=== PATIENT | female | born 1965 | race Hispanic/Latino ===

== ENCOUNTER 2019-07-12 10:54 | Outpatient (CLI) | payer BC ==
--- NOTE | 2019-07-12 14:24 | Mammography Report ---
DIGITAL SCREENING MAMMOGRAM WITH CAD, 07/12/2019 INDICATION: Routine screening mammography. TECHNIQUE: Digital bilateral 2D mammography was obtained in the craniocaudal and mediolateral obliq ue projections. This examination was interpreted with the benefit of Computer-Aided Detection analysi s. COMPARISON: None available. However, she indicated she had a prior mammogram at [facility]. FINDINGS: Breast Density: The breasts are heterogeneously dense, which may obscure small masses. Right asymmetry and left focal architectural distortion require comparison with a prior mammogram or additional imaging. No suspicious calcifications. IMPRESSION: Comparison with a previous mammogram is recommended. We will attempt to obtain a prior mammogram for comparison. If we do not obtain a prior mammogram within 30 days, a revised report will be issued rec ommending a recall for additional imaging. Please be advised that the patient should not schedule an appointment for return until adequate time (at least 2 weeks) has passed for us to obtain the prior m ammogram. Follow up recommendation: Obtain prior study for comparison Category 0: Incomplete. Needs additional imaging evaluation and/or prior mammograms for comparison. A "normal" or negative report should not discourage follow up or biopsy of a clinically significant f inding. A written summary of these findings will be mailed to the patient. The patient will be entered into a mammography reporting system which will generate a reminder letter for the patient's next appointmen t at the appropriate interval. The [employer] recommends yearly mammograms starting at age 40 and continuing as l tiffany as a woman is in good health. Breast MRI is recommended for women with an approximate 20-25% or greater lifetime risk of breast cancer, including women with a strong family history of breast or ova tabatha cancer or who have been treated for Hodgkin's disease. Signer Name: Yeyo Mak MD Signed: 07/12/2019 2:20 PM Workstation Name: [id number]
== END 2019-07-12 10:55 | disposition home or self-care (01) ==
LOC: MERGE 10:54 → MAMMO 10:54
PROVIDERS: ATTEND Internal Medicine
DX: Z12.31 Encounter for screening mammogram for malignant neoplasm of breast (principal)
CPT/HCPCS: 77067

== ENCOUNTER 2020-01-25 09:19 | Outpatient (CLI) | payer BC ==
[2020-01-25 10:08] LABS: BUN/Creatinine Ratio 18; Blood Urea Nitrogen 14 mg/dL (7-17); Calcium 10.1 mg/dL (8.4-10.2); Chol/HDL Ratio 3.27 %; HDL Cholesterol 51 mg/dL (40-59); Hemolysis Index 4; LDL Cholesterol,Direct 103 mg/dL (50-130)
== END 2020-01-25 09:20 | disposition home or self-care (01) ==
LOC: LAB 09:19
PROVIDERS: ATTEND Internal Medicine
DX: N20.0 Calculus of kidney (principal); E66.09 Other obesity due to excess calories; Z90.5 Acquired absence of kidney
CPT/HCPCS: 36415; 80048; 80061

== ENCOUNTER 2020-03-13 13:59 | Outpatient (CLI) | payer BC ==
--- NOTE | 2020-03-13 19:04 | Magnetic Resonance Report ---
MRI LUMBAR SPINE WITHOUT CONTRAST INDICATION / CLINICAL INFORMATION: BACK PAIN TECHNIQUE: Multisequence, multiplanar images of the lumbar spine were obtained. COMPARISON: None available. FINDINGS: Last disc space is considered to be L5-S1 ALIGNMENT: Normal lumbar lordosis without significant scoliosis. VERTEBRAE:Normal marrow signal and vertebral body height for age. VISUALIZED SPINAL CORD: No significant abnormality. Conus ends at L1 vertebral body level [id number] ANALYSIS: T12-L1 disc space is normal L1-2: Disc protrusion extending bilaterally more towards the right side; neuroforamina are normal L2-3: Shallow disc protrusion more towards the left side; neuroforamina are normal L3-4: Thecal sac stenoses due to combination of disc protrusion towards the right side; mild to moder ate facet and ligamentous hypertrophy; right neuroforamen narrowed L4-5: Significant thecal sac stenoses due to combination of broad-based disc herniation towards the l eft neuroforamen, facet and ligamentous hypertrophy; left foraminal stenoses L5-S1: Normal neuroforamina; mild to moderate facet joint hypertrophic changes PARASPINAL SOFT TISSUES: No significant abnormality. ADDITIONAL FINDINGS: None. IMPRESSION: Significant thecal sac stenoses at L4-L5 disc level due to broad-based disc herniation towards left neuroforamen, facet and ligamentous hypertrophy Moderate thecal sac stenoses at L3-L4 disc level due to disc protrusion towards the right side and fa cet and ligamentous hypertrophy Signer Name: Karla Rene MD Signed: 03/13/2020 6:59 PM Workstation Name: [id number]
== END 2020-03-13 14:00 | disposition home or self-care (01) ==
LOC: MRI 13:59
PROVIDERS: ATTEND Internal Medicine
DX: M48.061 Spinal stenosis, lumbar region without neurogenic claudication (principal); M40.47 Postural lordosis, lumbosacral region; M51.26 Other intervertebral disc displacement, lumbar region
CPT/HCPCS: 72148

== ENCOUNTER 2020-09-20 13:50 | Outpatient (CLI) | payer BC ==
--- NOTE | 2020-09-20 15:33 | Cat Scan Report ---
CT ABDOMEN AND PELVIS WITHOUT CONTRAST INDICATION / CLINICAL INFORMATION: CALCULUS OF KIDNEY. TECHNIQUE: Axial CT images were obtained through the abdomen and pelvis without IV contrast. All CT scans at this location are performed using CT dose reduction for ALARA by means of automated exposure control. COMPARISON: CT from 10/05/2018 MRI from 03/13/2020 FINDINGS: LOWER CHEST: No significant abnormality LIVER: No significant abnormality GALLBLADDER/BILIARY TREE: No significant abnormality PANCREAS: No significant abnormality SPLEEN: No significant abnormality ADRENALS: No significant abnormality KIDNEYS / URETER: Postoperative changes of right nephrectomy. Prominent adjacent lymph nodes in the r ight renal bed are unchanged from MRI from 03/13/2020. Adjacent 5 mm and 2 mm nonobstructive renal ca lculi noted within the lower pole of the left kidney. Additional punctate calculus at the midpole. No ureteral calculus or hydronephrosis. Left renal cyst is present. URINARY BLADDER: No significant abnormality REPRODUCTIVE ORGANS: Uterus is unremarkable. Nabothian cyst is present. There is a 3.1 cm right adnex al lesion contains macroscopic fat, compatible with an ovarian dermoid. STOMACH / SMALL BOWEL: Stomach and small bowel are normal in caliber. No evidence of bowel inflammati on. COLON: The colon is unremarkable. No evidence of appendicitis. LYMPH NODES: No new or increasing lymphadenopathy. VASCULATURE: Moderate atherosclerotic calcification without acute abnormality. OTHER: No free air, free fluid, or focal fluid collection is identified. SKELETAL SYSTEM: No acute osseous findings. IMPRESSION: 1. Nonobstructive left renal calculi, largest measuring 5 mm in the lower pole. No urolithiasis or hy dronephrosis. 2. Postoperative changes right nephrectomy. 3. 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 4. Other findings as above. Signer Name: Fidel Villegas MD Signed: 09/20/2020 3:28 PM Workstation Name: [id number]
== END 2020-09-20 13:51 | disposition home or self-care (01) ==
LOC: CT 13:50
PROVIDERS: ATTEND Urology
DX: N20.0 Calculus of kidney (principal); I70.0 Atherosclerosis of aorta; N83.201 Unspecified ovarian cyst, right side; Z90.5 Acquired absence of kidney
CPT/HCPCS: 74176

== ENCOUNTER 2021-01-22 08:02 | Outpatient (CLI) | payer BC ==
[2021-01-22 08:33] LABS: Bacteria,Urine 1+ /HPF (Negative); Bilirubin,Urine NEG (Negative); Blood,Urine SM (Negative); Color,Urine Yellow (Yellow); Mucus,Urine FEW /HPF; Protein,Urine <15 mg/dL mg/dL (Negative); Urobilinogen,Urine < 2.0 mg/dL (<2.0)
[2021-01-22 08:41] LABS: Basophils % (Auto) 0.5 % (0.0-1.8); Eosinophils # (Auto) 0.1 K/mm3 (0.0-0.4); Eosinophils % (Auto) 1.7 % (0.0-4.3); Hematocrit 44.9 % (30.3-42.9); Hemoglobin 15.5 gm/dl (10.1-14.3); Lymphocytes # (Auto) 1.2 K/mm3 (1.2-5.4); Lymphocytes % (Auto) 14.4 % (13.4-35.0); Mean Corpuscular HGB Conc 34 % (30-34); Mean Corpuscular Volume 92 fl (79-97); Monocytes # (Auto) 0.4 K/mm3 (0.0-0.8); Platelet Count 120 K/mm3 (140-440); Red Blood Count 4.88 M/mm3 (3.65-5.03); Red Cell Distribution Width 14.8 % (13.2-15.2)
[2021-01-22 10:19] LABS: Alanine Aminotransferase 11 units/L (7-56); Albumin 4.3 g/dL (3.9-5); BUN/Creatinine Ratio 21; Blood Urea Nitrogen 17 mg/dL (7-17); Calcium 9.6 mg/dL (8.4-10.2); Chol/HDL Ratio 3.62 %; HDL Cholesterol 51 mg/dL (40-59); Hemolysis Index 7; LDL Cholesterol,Direct 121 mg/dL (50-130)
--- NOTE | 2021-01-22 15:50 | Mammography Report ---
DIGITAL SCREENING MAMMOGRAM WITH CAD, 01/22/2021 CLINICAL INFORMATION / INDICATION: Routine screening TECHNIQUE: Digital bilateral 2D mammography was obtained in the craniocaudal and mediolateral obliqu e projections. This examination was interpreted with the benefit of Computer-Aided Detection analysis . COMPARISON: 07/12/2019 FINDINGS: Breast Density: There are scattered areas of fibroglandular density. No dominant mass, suspicious calcifications, or architectural distortion in either breast. IMPRESSION: No mammographic evidence of malignancy. Follow up recommendation: Routine yearly BI-RADS Category 1: Negative. A "normal" or negative report should not discourage follow up or biopsy of a clinically significant f inding. A written summary of these findings will be mailed to the patient. The patient will be entered into a mammography reporting system which will generate a reminder letter for the patient's next appointmen t at the appropriate interval. The [employer] recommends yearly mammograms starting at age 40 and continuing as l tiffany as a woman is in good health. Breast MRI is recommended for women with an approximate 20-25% or greater lifetime risk of breast cancer, including women with a strong family history of breast or ova tabatha cancer or who have been treated for Hodgkin's disease. Signer Name: Pato Power MD Signed: 01/22/2021 3:45 PM Workstation Name: [id number]
[2021-01-25 13:13] LABS: Vitamin D, 25-OH, D2 <4 ng/mL
== END 2021-01-22 08:03 | disposition home or self-care (01) ==
LOC: MAMMO 08:02
PROVIDERS: ATTEND Internal Medicine
DX: Z12.31 Encounter for screening mammogram for malignant neoplasm of breast (principal); Z13.1 Encounter for screening for diabetes mellitus; Z13.220 Encounter for screening for lipoid disorders; Z13.29 Encounter for screening for other suspected endocrine disorder; Z00.00 Encounter for general adult medical examination without abnormal findings; E55.9 Vitamin D deficiency, unspecified
CPT/HCPCS: 36415; 77067; 80053; 80061; 81001; 82306; 83036; 84443; 85025; 87086